=== PATIENT | female | born 1995 | race Caucasian/White ===

== ENCOUNTER 2023-10-05 15:53 | Emergency (ER) | payer BC, SELFPAY ==
--- NOTE | 2023-10-05 16:01 | XR_ITS ---
FINAL REPORT CLINICAL HISTORY: pain, door shut on foot, peeled 1st toenail off COMPARISON: None FINDINGS: RIGHT FOOT: Three views of the right foot were obtained. There is no acute fracture or dislocation. The joint spaces are intact. There is no soft tissue abnormality. IMPRESSION: No acute bony abnormality. Reviewed, Interpreted and Dictated by Josias Galan III, MD Transcribed by Anabell Lamas Authenticated and [facility]
[2023-10-05 16:30] VITALS: BP 178/95; PULSE 85; RESP 18; TEMP 36.6; O2SAT 97; BMI 27.4
--- NOTE | 2023-10-05 16:36 | ED_ITS ---
Discharge Plan Disposition Patient Disposition: Home, Self-Care Condition: Good Prescriptions Prescriptions: New cephalexin 500 mg capsule 500 mg PO QID Qty: 40 0RF mupirocin 2 % ointment 1 applic topical TID 7 Days Qty: 15 0RF ibuprofen [IBU] 800 mg tablet 800 mg PO Q8HP PRN (Reason: Moderate Pain) Qty: 30 0RF No Action metoprolol tartrate 50 mg tablet 50 mg PO BID Patient Comments: TAKE 1 TABLET BY MOUTH 2 TIMES DAILY. losartan 100 mg tablet 100 mg PO DAILY Patient Comments: TAKE 1 TABLET BY MOUTH DAILY. Referrals Follow up/Referrals: Kobe Mak [Primary Care Provider] - See instructions Sharmaine Rodriguez DPM [Staff Physician] - See instructions Activity Restrictions/Add. Instructions Additional Instructions/Restrictions: Keep the wound clean and dry. Keep a dressing on it if you are going to be getting it dirty. Watch the wound for signs of infection, such as redness, swelling, drainage, fever. etc. The the oral antibiotics (cephalexin) as directed. Apply the topical antibiotic ointment as directed. Take ibuprofen for pain, I sent in a prescription for ibuprofen 800 mg to your pharmacy. Follow up with your regular doctor. Follow up with Dr. Rodriguez (podiatry). I put in a referral but you need to call her office and schedule an appointment. Her office number will be on this paperwork. Please call her office in the morning to get the follow up appointment scheduled. GO TO THE ER FOR ANY WORSENING SYMPTOMS OR CONCERNS. Clinical Impressions Clinical Impression: Open wound of right great toe with damage to nail, Need for Tdap vaccination Stand Alone Forms Stand Alone Forms: Work/School Release Instructions Patient Instructions: Tetanus, Diphtheria, and Pertussis Vaccine, DI for Nail Avulsion Injury Discharge ED Provider: Frank Bustos [facility] General Stated complaint: AO10/03 Rt big toe inj Time Seen by Provider: 10/05/23 16:36 History of Present Illness Provider Complaint: She states that yesterday her child open a door and caught her right great toe nail beneath the door. This caused the nail to be partially pulled loose from its base. Since then she has had a partially avulsed great toe nail, bleeding around the nail, and pain at the site. She is not a diabetic. She request to have the nail to be completely removed because it is getting caught on everything and she is unable to put on a sock or shoe on that foot. She denies any other injury. Her tetanus immunization is not up to date. Related Data Home Medications Medication Instructions Recorded Confirmed losartan 100 mg tablet 100 mg PO DAILY 10/05/23 10/05/23 metoprolol tartrate 50 mg tablet 50 mg PO BID 10/05/23 10/05/23 Previous Rx's Medication Instructions Recorded cephalexin 500 mg capsule 500 mg PO QID #40 caps 10/05/23 ibuprofen 800 mg tablet (IBU) 800 mg PO Q8HP PRN Moderate Pain 10/05/23 #30 tabs mupirocin 2 % topical ointment 1 applic topical TID 7 days #15 10/05/23 grams Allergies Allergy/AdvReac Type Severity Reaction Status Date / Time No Known Allergies Allergy Verified 10/05/23 16:47 [facility] Disclaimer: The information contained in this section may have been updated after the patient was seen, as this information can be updated by other users. Social History Smoking Status: Never smoker alcohol intake: never current occupational status: employed Travel in the last 8 weeks: None ROS Obtained: Yes All systems reviewed & no additional complaints except as documented Constitutional Constitutional: Denies chills and Denies fever(s) Eyes Eyes: Denies eye discharge ENT Ears, Nose, Mouth, and Throat: Denies dizziness, Denies otalgia and Denies sore throat Cardiovascular Cardiovascular: Denies chest pain Respiratory Respiratory: Denies shortness of breath, Denies chest congestion, Denies cough, Denies stridor and Denies wheezing Gastrointestinal Gastrointestingal: Denies nausea or vomiting Musculoskeletal Musculoskeletal: Reports system reviewed and no additional complaints, except as documented and Denies arthralgias Integumentary/Breasts Skin/Breast: Reports as per HPI Neurologic Neurologic: Denies dizziness and Denies paresthesias Allergic/Immunologic Allergic/Immunologic: Denies wheezing Physical Exam General General appearance: alert and in no apparent distress Head Head exam: atraumatic, normocephalic and normal inspection Eye Eye exam: Present normal appearance, PERRL and EOMI ENT ENT exam: Present normal exam, normal oropharynx, mucous membranes moist, TM's normal bilaterally and normal external ear exam Neck Neck exam: Present normal inspection, full ROM and trachea midline; Absent meningismus or lymphadenopathy Chest Chest inspection: Present normal inspection and symmetric chest wall rise; Absent tenderness Respiratory Respiratory exam: Present normal lung sounds bilaterally; Absent respiratory distress Cardiovascular Cardiovascular exam: Present regular rate and normal rhythm; Absent JVD Abdominal Exam Abdominal exam: Present soft and normal bowel sounds; Absent distention, tenderness or guarding Extremities Exam Extremities exam: Present normal inspection, full ROM and normal capillary refill; Absent calf tenderness Expanded Lower Extremity Exam Right: Ankle exam: Present normal inspection and full ROM; Absent tenderness, swelling, abrasion, laceration, ecchymosis, deformity, crepitus, dislocation, erythema, tenderness over talofibular lig or anterior draw sign Foot/toe exam: Present full ROM, tenderness, nail avulsion and subungual hematoma; Absent swelling, abrasion, laceration, ecchymosis, deformity, crepitus, dislocation, erythema, amputation, puncture wound, foreign body, calcaneal tenderness or tenderness at base of 5th metatarsal Neurovascular/Tendon exam: Present normal capillary refill and normal fine/light touch; Absent pulse deficit, motor deficit, sensory deficit, tendon deficit or extremity cold to touch Gait: observed and normal Back Exam Back exam: Present normal inspection; Absent tenderness Neurological Exam Neurological exam: Present alert and oriented X3 Psychiatric Psychiatric exam: Present normal affect and normal mood Skin Skin exam: Present other (the nail on her right great toe is partially avulsed. there is a small amount of bleeding from beneath the nail. ) Lymphatic Lymphatic Findings: no adenopathy Medical Decision Making Medical Records Medical records reviewed: No I reviewed the patient's medical records. [place] Inquiry Pt receiving controlled substance: No Orders (Tests/Meds): ORDERS Category Date Time Status Foot XR right minimum 3 views [XR foot RT min 3V] Stat Exams 10/05/23 16:01 Taken Radiology Data #1: Image(s): Foot/Toes Image Reviewed: Yes I reviewed the patient's radiology image and Yes I have reviewed radiologist's interpretation Preliminary Findings: Normal/NAD and No Fracture Seen FINAL REPORT CLINICAL HISTORY: pain, door shut on foot, peeled 1st toenail off COMPARISON: None FINDINGS: RIGHT FOOT: Three views of the right foot were obtained. There is no acute fracture or dislocation. The joint spaces are intact. There is no soft tissue abnormality. IMPRESSION: No acute bony abnormality. Reviewed, Interpreted and Dictated by Josias Galan III, MD Transcribed by Anabell Lamas Authenticated and [facility] Procedures Risk/Benefits of Procedure(s) Were Explained: Yes Nerve Block Nerve Block 1: Time out performed: Yes Local Anesthetic: lidocaine 1% Amount of anesthesia used (mL): 2 Side: Right Nerve Blocks: digital Procedure Successful: No Patient Tolerated Procedure: other (she c/o pain with procedure and had to stop the procedure. ) Complications: pain with procedure and inadequate anesthesia
[2023-10-05] MEDS: TET/DIPHTH/PERT-ADULT 0.5ML SYRINGE 0.5 ML IM (19:09)
[2023-10-05 19:32] VITALS: BP 178/95; PULSE 85; RESP 18; TEMP 36.6; O2SAT 97
== END 2023-10-05 19:32 | disposition home or self-care (01) ==
PROVIDERS: Emergency Provider Nurse Practitioner Family; PCP Pediatrics
DX: S91.201A Unspecified open wound of right great toe with damage to nail, initial encounter (principal); W23.1XXA Caught, crushed, jammed, or pinched between stationary objects, initial encounter
CPT/HCPCS: 73630; 90471; 90715; 99204; 99212; G0463